=== PATIENT | female | born 1950 | race American Indian/Alaskan Native ===

== ENCOUNTER 2018-03-14 12:12 | Day surgery (SDC) | payer MEDICARE ==
[2018-03-14] MEDS ORDERED: Propofol 10 mg/ml Inj (20 ML) ONE (14:21)
[2018-03-14] MEDS ORDERED: Midazolam 2 MG/2 ML VIAL ONE (14:21)
[2018-03-14] MEDS ORDERED: Silver Nitrate Topical - Stick ONE (14:37)
[2018-03-14] MEDS ORDERED: HYDROmorphone 0.5 mg/0.5 ml ISec IVP PRN (15:33)
--- NOTE | 2018-03-14 15:48 | PCM.SURG1 ---
Surgeon's Initial Post Op Note - Surgeon's Notes Surgeon: Laurel Gonzalez [employer] Presser: Alfonso Noel Type of Anesthesia: General LMA Pre-Operative Diagnosis: Postmenopausal Bleeding Operative Findings: anteverted uterus sounded to 8.5cm dilated cervix (1cm) 1.5cm endometrial polyp arising from the left lateral side wall of uterine cavity purulent material noted on polyp Post-Operative Diagnosis: postmenopausal bleeding, endometrial polyp Operation Performed: Hysteroscopy, dilation and curettage Myosure polypectomy Specimen/Specimens Removed: endometrial polyp; endometrial curettings Estimated Blood Loss: EBL {In ML}: 10 Blood Products Given: N/A Drains Used: No Drains Post-Op Condition: Good Date of Surgery/Procedure: 03/14/18 Time of Surgery/Procedure: 02:30
[2018-03-14 16:44] VITALS: RESP 16
[2018-03-14 17:26] VITALS: BP 146/80; PULSE 79; TEMP 97.8; O2SAT 100
--- NOTE | 2018-03-20 21:38 | OP ---
PROCEDURE DATE: 03/14/2018 SURGEON: Laurel Gonzalez DO DIRECTOR OF EXTENSION WORK: Alfonso Noel MD ANESTHESIA: General by laryngeal mask airway. PREOPERATIVE DIAGNOSIS: Postmenopausal bleeding. POSTOPERATIVE DIAGNOSES: Postmenopausal bleeding and endometrial polyp. OPERATIVE FINDINGS: Anteverted uterus, size 8.5 cm, cervix dilated 1 cm and 1.5 cm endometrial polyp arising from the left lateral sidewall of the uterine cavity containing purulent material. PROCEDURE: Hysteroscopy followed by dilation and curettage and MyoSure polypectomy. SPECIMEN: Endometrial polyp and endometrial curettings. ESTIMATED BLOOD LOSS: 10 mL. POSTOPERATIVE CONDITION: Stable. COMPLICATIONS: None. DESCRIPTION OF PROCEDURE: The patient was taken to the operating room where general anesthesia was administered and found to be adequate. She was prepped and draped in a normal sterile fashion in dorsal lithotomy position with Low stirrups. Venodyne boots were used for DVT prophylaxis. After surgical time-out was completed, the weighted speculum was introduced into the posterior aspect of the vagina, and the cervix was visualized. The anterior lip of the cervix was grasped with a single-tooth tenaculum. The cervix was noted to be dilated. It was sounded to 8.5 cm and then further dilated. We accompanied the hysteroscope. The MyoSure was introduced. Survey of the endometrial canal revealed the above findings. The polyp was then removed with a combination of the MyoSure and polyp forceps. The specimen was sent to Pathology. Then, the endometrial cavity was then curetted in a clockwise fashion, and all of the endometrial curettings were also sent to Pathology. The MyoSure was removed. All the instruments were removed from the vagina. There was a good hemostasis at the tenaculum site. All lap, sponge, and needle counts were correct x2. The patient tolerated the procedure and was taken to the recovery room in stable condition. Laurel Gonzalez D.O.
== END 2018-03-14 17:22 | disposition home or self-care (01) ==
LOC: C.SDS 12:12
PROVIDERS: ATTEND Obstetrics & Gynecology
DX: N85.00 Endometrial hyperplasia, unspecified (principal); N95.0 Postmenopausal bleeding
CPT/HCPCS: 58558; 88305; J2250; J2704; J3010